=== PATIENT | female | born 1955 | race Caucasian/White ===

== ENCOUNTER 2018-06-09 20:27 | Inpatient (IN) | payer SELFPAY ==
[~2018-06-09] VITALS: Ht 165.1 cm; Wt 74.5 kg
[2018-06-09 20:33] VITALS: Ht 165.1 cm; Wt 74.5 kg
[2018-06-09 21:32] LABS: BASOPHIL % 0.8 % (0-2); PLATELET COUNT 270 x10^3mcL (130-400); RED CELL DISTRIBUTION WIDTH 14.4 % (11.5-14.5)
[2018-06-09 21:57] LABS: CALCIUM 8.4 mg/dL (8.5-10.1); CARBON DIOXIDE 27.3 mmol/L (21-32); CHLORIDE SERUM 105 mmol/L (98-107); CREATININE SERUM 0.8 mg/dL (0.6-1.0); GFR1 > 60 mL/min; GLUCOSE SERUM 104 mg/dL (74-106); POTASSIUM SERUM 4.1 mmol/L (3.5-5.1); SODIUM SERUM 139 mmol/L (136-145)
[2018-06-09 22:12] LABS: T3 TOTAL 1.23 ng/mL
[2018-06-09 22:15] LABS: AMPHETAMINE QUAL UR POSITIVE (See below)
[2018-06-09 22:27] LABS: FREE T4 0.95 ng/dL (0.76-1.46)
[2018-06-09 22:28] LABS: LIPASE 92 IU/L (73-393)
[2018-06-09 22:50] LABS: ALKALINE PHOSPHATASE 139 U/L (46-116); ALT/SGPT 53 U/L (14-59); AST/SGOT 32 U/L (15-37); BILIRUBIN TOTAL 0.4 mg/dL (0.20-1.00); CHOLESTEROL 242 mg/dL (<200); TOTAL PROTEIN, SERUM 7.6 g/dL (6.4-8.2)
[2018-06-09 22:58] LABS: FREE THYROXINE INDEX 2.6 ug/dL (1.4-4.5); T4(THYROXINE) 7.9 ug/dL (4.7-13.3)
[2018-06-10] MEDS ORDERED: TOPROL XL25 MG PO (00:28)
[2018-06-10 01:25] LABS: PHOSPHOROUS 3.6 mg/dL (2.5-4.9)
[2018-06-10 01:35] VITALS: BP 179/84
[2018-06-10 05:27] VITALS: BP 153/79
[2018-06-10 08:19] LABS: CALCIUM 8.4 mg/dL (8.5-10.1); CARBON DIOXIDE 24.6 mmol/L (21-32); CHLORIDE SERUM 106 mmol/L (98-107); CREATININE SERUM 0.7 mg/dL (0.6-1.0); GFR1 > 60 mL/min; GLUCOSE SERUM 105 mg/dL (74-106); POTASSIUM SERUM 3.6 mmol/L (3.5-5.1); SODIUM SERUM 138 mmol/L (136-145)
[2018-06-10 08:22] LABS: BASOPHIL % 0.3 % (0-2); PLATELET COUNT 256 x10^3mcL (130-400); RED CELL DISTRIBUTION WIDTH 14.3 % (11.5-14.5)
[2018-06-10 12:07] VITALS: BP 146/78
[2018-06-10 13:43] VITALS: BP 146/78
== END 2018-06-10 17:05 | disposition home or self-care (01) | DRG 917 ==
LOC: ED 20:27 → DU 23:57
PROVIDERS: Family Medicine; Specialist
DX: T43.621A Poisoning by amphetamines, accidental (unintentional), initial encounter (principal); G92 Toxic encephalopathy; F15.20 Other stimulant dependence, uncomplicated; I10 Essential (primary) hypertension; F17.210 Nicotine dependence, cigarettes, uncomplicated; T43.625A Adverse effect of amphetamines, initial encounter; Y92.89 Other specified places as the place of occurrence of the external cause; F32.9 Major depressive disorder, single episode, unspecified; E78.5 Hyperlipidemia, unspecified; E83.51 Hypocalcemia
CPT/HCPCS: 82962; 83880; 84439; G0480; J7030; Q0092